=== PATIENT | female | born 1990 | race African-American/Black ===

== ENCOUNTER 2016-11-15 12:44 | Emergency (ER) | payer OTHER ==
[~2016-11-15] VITALS: Ht 162.6 cm; Wt 82.0 kg
[2016-11-15 14:11] VITALS: BP 113/63
[2016-11-15] MEDS ORDERED: BACITRACIN ZINC OINT UDPKT TOP ONE (14:45)
== END 2016-11-15 15:24 | disposition home or self-care (01) ==
LOC: ER 14:48
DX: Z48.02 Encounter for removal of sutures (principal)
CPT/HCPCS: 99283; Z7610